=== PATIENT | female | born 1950 | race Caucasian/White ===

== ENCOUNTER 2020-12-17 16:17 | Inpatient (IN) ==
[2020-12-17] MEDS: Budesonide/Formoterol 160/4.5 1 PUFF INH IH SCH (22:44)
[2020-12-17] MEDS: rOPINIRole 0.25 MG TABLET PO SCH (22:52)
[2020-12-18 06:12] LABS: Basophils % 0.2 %; Hematocrit 26.3 % (35.3-44.9); Hemoglobin 8.1 g/dL (11.5-15.4); Immature Granulocytes % 6.6 % (0-4); Lymphocytes # 1.1 K/mcL (0.6-4.6); Lymphocytes % 16.6 %; Mean Corpuscular HGB Conc 30.8 g/dL (31.6-35.5); Mean Corpuscular Hemoglobin 31.2 pg (28.0-33.3); Mean Corpuscular Volume 101.2 fL (83.0-100.0); Mean Platelet Volume 10.4 fL (9.4-12.4); Monocytes # 0.5 K/mcL (0.0-1.3); Monocytes % 8.3 %; Neutrophils # 4.4 K/mcL (1.6-8.9); Nucleated Red Blood Cells 0.9 /100 WBC (0); Red Cell Distribution Width 18.3 % (11.5-14.5); Segmented Neutrophils % 68.3 %; White Blood Count 6.5 K/mcL (4.3-11.1)
[2020-12-18 06:18] LABS: Platelet Count 65 K/mcL (140-400)
[2020-12-18 06:39] LABS: BUN/Creatinine Ratio 32 (6-26); Blood Urea Nitrogen 21 mg/dL (8-23); Calcium 6.9 mg/dL (8.6-10.3); Carbon Dioxide 26 mEq/L (23-29); Chloride 111 mEq/L (98-107); Glucose 192 mg/dL (70-105); Osmolality,Calculated 302 (280-300); Potassium 3.9 mEq/L (3.5-5.1); Sodium 142 mEq/L (136-145); eGFR For African Americans > 60 (> 60); eGFR For Non-African Americans > 60 (> 60)
[2020-12-18] MEDS: *HR* Enoxaparin 40 MG/0.4 ML SYRINGE SQ SCH (06:40)
[2020-12-18] MEDS: Acetaminophen 325 MG TABLET PO PRN ×2 (06:42→11:03)
[2020-12-18] MEDS: dexAMETHasone 4 MG TABLET PO SCH (08:56)
[2020-12-18] MEDS: carvediloL 6.25 MG TABLET PO SCH ×2 (08:56→17:04)
[2020-12-18] MEDS: Isosorbide MONOnitrate (24 HR) 30 MG TAB.ER.24H PO SCH (08:57)
[2020-12-18] MEDS: amLODIPine 5 MG TABLET PO SCH (08:57)
[2020-12-18] MEDS: *HR* SitaGLIPtin 25 MG TABLET PO SCH (08:57)
[2020-12-18] MEDS: levoFLOXacin 750 MG TABLET PO SCH (08:57)
[2020-12-18] MEDS: Loratadine 10 MG TABLET PO SCH (08:57)
[2020-12-18] MEDS: Budesonide/Formoterol 160/4.5 1 PUFF INH IH SCH ×2 (10:03→21:25)
[2020-12-18] MEDS: Tiotropium 10 INH DOSE IH SCH (10:04)
[2020-12-18] MEDS: rOPINIRole 0.25 MG TABLET PO SCH (21:05)
[2020-12-18] MEDS: *HR* OxyCODONE/APAP 5/325 TABLET PO PRN (21:06)
[2020-12-19] MEDS: *HR* OxyCODONE/APAP 5/325 TABLET PO PRN ×2 (05:58→17:22)
[2020-12-19] MEDS: *HR* Enoxaparin 40 MG/0.4 ML SYRINGE SQ SCH (06:01)
[2020-12-19] MEDS: amLODIPine 5 MG TABLET PO SCH (08:18)
[2020-12-19] MEDS: dexAMETHasone 4 MG TABLET PO SCH (08:18)
[2020-12-19] MEDS: Acetaminophen 325 MG TABLET PO PRN (08:18)
[2020-12-19] MEDS: levoFLOXacin 750 MG TABLET PO SCH (08:18)
[2020-12-19] MEDS: carvediloL 6.25 MG TABLET PO SCH ×2 (08:18→17:22)
[2020-12-19] MEDS: Isosorbide MONOnitrate (24 HR) 30 MG TAB.ER.24H PO SCH (08:19)
[2020-12-19] MEDS: Loratadine 10 MG TABLET PO SCH (08:19)
[2020-12-19] MEDS: *HR* SitaGLIPtin 25 MG TABLET PO SCH (08:19)
[2020-12-19] MEDS: Benzonatate 100 MG CAPSULE PO PRN ×2 (08:19→22:10)
[2020-12-19] MEDS ORDERED: Dextrose Gel 15 GM/37.5 ML TUBE PO PRN ×2 (09:48)
[2020-12-19] MEDS ORDERED: *HR* Dextrose 50 % in Water (Vial) 50 ML VIAL IVP PRN (09:48)
[2020-12-19] MEDS ORDERED: D5% in Water 1,000 ML IVC PRN (09:48)
[2020-12-19] MEDS: Tiotropium 10 INH DOSE IH SCH (09:59)
[2020-12-19] MEDS: Budesonide/Formoterol 160/4.5 1 PUFF INH IH SCH ×2 (10:00→20:31)
[2020-12-19] MEDS: Insulin LISPRO 300 UNITS/3 ML VIAL SUBQ SCH ×3 (11:52→22:11)
[2020-12-19] MEDS: Fluconazole 100 MG TABLET PO SCH (17:22)
[2020-12-19] MEDS: Nystatin Cream 15 GM TUBE TP SCH (22:09)
[2020-12-19] MEDS: Nystatin POWDER 30 GM BOTTLE TP SCH (22:09)
[2020-12-19] MEDS: rOPINIRole 0.25 MG TABLET PO SCH (22:09)
[2020-12-19] MEDS: GuaiFENesin/Dextromethorphan TABLET PO PRN (22:10)
[2020-12-20] MEDS: *HR* Enoxaparin 40 MG/0.4 ML SYRINGE SQ SCH (04:13)
[2020-12-20] MEDS: GuaiFENesin/Dextromethorphan TABLET PO PRN (08:55)
[2020-12-20] MEDS: Loratadine 10 MG TABLET PO SCH (08:55)
[2020-12-20] MEDS: Fluconazole 100 MG TABLET PO SCH (08:55)
[2020-12-20] MEDS: carvediloL 6.25 MG TABLET PO SCH ×2 (08:55→17:19)
[2020-12-20] MEDS: *HR* SitaGLIPtin 25 MG TABLET PO SCH (08:56)
[2020-12-20] MEDS: *HR* OxyCODONE/APAP 5/325 TABLET PO PRN ×2 (08:56→22:41)
[2020-12-20] MEDS: amLODIPine 5 MG TABLET PO SCH (08:56)
[2020-12-20] MEDS: dexAMETHasone 4 MG TABLET PO SCH (08:56)
[2020-12-20] MEDS: levoFLOXacin 750 MG TABLET PO SCH (08:56)
[2020-12-20] MEDS: Insulin LISPRO 300 UNITS/3 ML VIAL SUBQ SCH ×4 (08:57→22:42)
[2020-12-20] MEDS: Tiotropium 10 INH DOSE IH SCH (10:29)
[2020-12-20] MEDS: Budesonide/Formoterol 160/4.5 1 PUFF INH IH SCH ×2 (10:30→21:03)
[2020-12-20] MEDS: Isosorbide MONOnitrate (24 HR) 30 MG TAB.ER.24H PO SCH (12:28)
[2020-12-20] MEDS: Nystatin POWDER 30 GM BOTTLE TP SCH ×2 (12:29→22:42)
[2020-12-20] MEDS: Nystatin Cream 15 GM TUBE TP SCH ×2 (12:29→22:37)
[2020-12-20] MEDS: Benzonatate 100 MG CAPSULE PO PRN (22:41)
[2020-12-20] MEDS: rOPINIRole 0.25 MG TABLET PO SCH (22:41)
[2020-12-21] MEDS: *HR* Enoxaparin 40 MG/0.4 ML SYRINGE SQ SCH (05:09)
[2020-12-21 07:33] LABS: Basophils % 0.2 %; Hematocrit 26.5 % (35.3-44.9); Hemoglobin 8.4 g/dL (11.5-15.4); Immature Granulocytes % 6.3 % (0-4); Lymphocytes % 16.3 %; Mean Corpuscular HGB Conc 31.7 g/dL (31.6-35.5); Mean Corpuscular Volume 97.8 fL (83.0-100.0); Mean Platelet Volume 10.3 fL (9.4-12.4); Monocytes # 0.3 K/mcL (0.0-1.3); Monocytes % 5.4 %; Neutrophils # 4.4 K/mcL (1.6-8.9); Red Blood Count 2.71 M/mcL (3.82-4.97); Red Cell Distribution Width 18.2 % (11.5-14.5); Segmented Neutrophils % 71.8 %; White Blood Count 6.2 K/mcL (4.3-11.1)
[2020-12-21 07:36] LABS: Platelet Count 53 K/mcL (140-400)
[2020-12-21 07:42] LABS: BUN/Creatinine Ratio 42 (6-26); Blood Urea Nitrogen 22 mg/dL (8-23); Calcium 7.2 mg/dL (8.6-10.3); Carbon Dioxide 32 mEq/L (23-29); Chloride 99 mEq/L (98-107); Glucose 239 mg/dL (70-105); Osmolality,Calculated 291 (280-300); Potassium 4.9 mEq/L (3.5-5.1); Sodium 135 mEq/L (136-145); eGFR For African Americans > 60 (> 60); eGFR For Non-African Americans > 60 (> 60)
[2020-12-21] MEDS: *HR* SitaGLIPtin 25 MG TABLET PO SCH (09:53)
[2020-12-21] MEDS: carvediloL 6.25 MG TABLET PO SCH ×2 (09:53→16:49)
[2020-12-21] MEDS: levoFLOXacin 750 MG TABLET PO SCH (09:53)
[2020-12-21] MEDS: dexAMETHasone 4 MG TABLET PO SCH (09:53)
[2020-12-21] MEDS: Isosorbide MONOnitrate (24 HR) 30 MG TAB.ER.24H PO SCH (09:53)
[2020-12-21] MEDS: Loratadine 10 MG TABLET PO SCH (09:54)
[2020-12-21] MEDS: Fluconazole 100 MG TABLET PO SCH (09:54)
[2020-12-21] MEDS: amLODIPine 5 MG TABLET PO SCH (09:54)
[2020-12-21] MEDS: *HR* OxyCODONE/APAP 5/325 TABLET PO PRN ×2 (09:54→21:37)
[2020-12-21] MEDS: Insulin LISPRO 300 UNITS/3 ML VIAL SUBQ SCH ×4 (09:56→21:21)
[2020-12-21] MEDS: Nystatin Cream 15 GM TUBE TP SCH ×2 (09:57→21:29)
[2020-12-21] MEDS: Nystatin POWDER 30 GM BOTTLE TP SCH ×2 (09:57→21:29)
[2020-12-21] MEDS: Tiotropium 10 INH DOSE IH SCH (10:14)
[2020-12-21] MEDS: Budesonide/Formoterol 160/4.5 1 PUFF INH IH SCH ×2 (10:15→20:05)
[2020-12-21] MEDS: Furosemide 40 MG TABLET PO SCH (12:41)
[2020-12-21] MEDS: rOPINIRole 0.25 MG TABLET PO SCH (21:21)
[2020-12-22] MEDS: *HR* Enoxaparin 40 MG/0.4 ML SYRINGE SQ SCH (04:04)
[2020-12-22] MEDS: *HR* OxyCODONE/APAP 5/325 TABLET PO PRN ×2 (05:45→16:37)
[2020-12-22] MEDS: carvediloL 6.25 MG TABLET PO SCH ×2 (08:22→16:42)
[2020-12-22] MEDS: dexAMETHasone 4 MG TABLET PO SCH (08:22)
[2020-12-22] MEDS: Loratadine 10 MG TABLET PO SCH (08:22)
[2020-12-22] MEDS: Fluconazole 100 MG TABLET PO SCH (08:22)
[2020-12-22] MEDS: *HR* SitaGLIPtin 25 MG TABLET PO SCH (08:22)
[2020-12-22] MEDS: Furosemide 40 MG TABLET PO SCH (08:22)
[2020-12-22] MEDS: amLODIPine 5 MG TABLET PO SCH (08:22)
[2020-12-22] MEDS: Isosorbide MONOnitrate (24 HR) 30 MG TAB.ER.24H PO SCH (08:23)
[2020-12-22] MEDS: Insulin LISPRO 300 UNITS/3 ML VIAL SUBQ SCH ×4 (08:24→21:40)
[2020-12-22] MEDS: Nystatin Cream 15 GM TUBE TP SCH ×2 (09:57→21:41)
[2020-12-22] MEDS: Nystatin POWDER 30 GM BOTTLE TP SCH ×2 (09:57→21:41)
[2020-12-22] MEDS: Tiotropium 10 INH DOSE IH SCH (11:18)
[2020-12-22] MEDS: Budesonide/Formoterol 160/4.5 1 PUFF INH IH SCH ×2 (11:19→20:06)
[2020-12-22 18:04] LABS: Basophils % 0.3 %; Hematocrit 28.8 % (35.3-44.9); Hemoglobin 9.1 g/dL (11.5-15.4); Immature Granulocytes % 4.9 % (0-4); Lymphocytes # 0.7 K/mcL (0.6-4.6); Lymphocytes % 10.7 %; Mean Corpuscular HGB Conc 31.6 g/dL (31.6-35.5); Mean Corpuscular Hemoglobin 31.4 pg (28.0-33.3); Mean Corpuscular Volume 99.3 fL (83.0-100.0); Mean Platelet Volume 12.4 fL (9.4-12.4); Monocytes # 0.1 K/mcL (0.0-1.3); Monocytes % 1.3 %; Neutrophils # 5.2 K/mcL (1.6-8.9); Nucleated Red Blood Cells 1.1 /100 WBC (0); Red Cell Distribution Width 18.5 % (11.5-14.5); Segmented Neutrophils % 82.8 %; White Blood Count 6.3 K/mcL (4.3-11.1)
[2020-12-22 18:14] LABS: BUN/Creatinine Ratio 40 (6-26); Blood Urea Nitrogen 26 mg/dL (8-23); Calcium 7.2 mg/dL (8.6-10.3); Carbon Dioxide 28 mEq/L (23-29); Chloride 99 mEq/L (98-107); Glucose 282 mg/dL (70-105); Osmolality,Calculated 291 (280-300); Potassium 4.3 mEq/L (3.5-5.1); Sodium 133 mEq/L (136-145); eGFR For African Americans > 60 (> 60); eGFR For Non-African Americans > 60 (> 60)
[2020-12-22 18:16] LABS: Platelet Count 56 K/mcL (140-400)
[2020-12-22 18:20] LABS: Platelet Estimate Marked Decrease (Normal)
[2020-12-22] MEDS: rOPINIRole 0.25 MG TABLET PO SCH (21:41)
[2020-12-22] MEDS: Acetaminophen 325 MG TABLET PO PRN (21:43)
[2020-12-23] MEDS: *HR* OxyCODONE/APAP 5/325 TABLET PO PRN ×2 (05:32→13:29)
[2020-12-23 06:41] LABS: BUN/Creatinine Ratio 44 (6-26); Blood Urea Nitrogen 31 mg/dL (8-23); Calcium 7.1 mg/dL (8.6-10.3); Carbon Dioxide 30 mEq/L (23-29); Chloride 99 mEq/L (98-107); Glucose 292 mg/dL (70-105); Osmolality,Calculated 295 (280-300); Potassium 4.5 mEq/L (3.5-5.1); Sodium 134 mEq/L (136-145); eGFR For African Americans > 60 (> 60); eGFR For Non-African Americans > 60 (> 60)
[2020-12-23 06:47] LABS: Basophils % 0.2 %; Hematocrit 25.7 % (35.3-44.9); Hemoglobin 8.2 g/dL (11.5-15.4); Immature Granulocytes % 5.1 % (0-4); Lymphocytes # 0.9 K/mcL (0.6-4.6); Mean Corpuscular HGB Conc 31.9 g/dL (31.6-35.5); Mean Corpuscular Hemoglobin 31.3 pg (28.0-33.3); Mean Corpuscular Volume 98.1 fL (83.0-100.0); Mean Platelet Volume 10.2 fL (9.4-12.4); Monocytes # 0.4 K/mcL (0.0-1.3); Monocytes % 5.6 %; Nucleated Red Blood Cells 1.1 /100 WBC (0); Red Blood Count 2.62 M/mcL (3.82-4.97); Red Cell Distribution Width 18.3 % (11.5-14.5); Segmented Neutrophils % 75.1 %; White Blood Count 6.6 K/mcL (4.3-11.1)
[2020-12-23 06:49] LABS: Platelet Count 45 K/mcL (140-400)
[2020-12-23] MEDS: *HR* Enoxaparin 40 MG/0.4 ML SYRINGE SQ SCH (07:09)
[2020-12-23 07:13] LABS: Platelet Estimate Decreased (Normal)
[2020-12-23] MEDS: Loratadine 10 MG TABLET PO SCH (08:23)
[2020-12-23] MEDS: Isosorbide MONOnitrate (24 HR) 30 MG TAB.ER.24H PO SCH (08:23)
[2020-12-23] MEDS: Furosemide 40 MG TABLET PO SCH (08:23)
[2020-12-23] MEDS: *HR* SitaGLIPtin 25 MG TABLET PO SCH (08:23)
[2020-12-23] MEDS: carvediloL 6.25 MG TABLET PO SCH ×2 (08:23→17:03)
[2020-12-23] MEDS: amLODIPine 5 MG TABLET PO SCH (08:23)
[2020-12-23] MEDS: Nystatin Cream 15 GM TUBE TP SCH ×2 (08:24→20:38)
[2020-12-23] MEDS: Insulin LISPRO 300 UNITS/3 ML VIAL SUBQ SCH ×4 (08:24→20:38)
[2020-12-23] MEDS: Nystatin POWDER 30 GM BOTTLE TP SCH ×2 (08:24→20:38)
[2020-12-23] MEDS: Budesonide/Formoterol 160/4.5 1 PUFF INH IH SCH ×2 (12:07→20:07)
[2020-12-23] MEDS: Tiotropium 10 INH DOSE IH SCH (12:07)
[2020-12-23] MEDS: rOPINIRole 0.25 MG TABLET PO SCH (20:38)
[2020-12-23] MEDS: Acetaminophen 325 MG TABLET PO PRN (20:47)
[2020-12-23] MEDS: GuaiFENesin/Dextromethorphan TABLET PO PRN (20:47)
[2020-12-24] MEDS: *HR* OxyCODONE/APAP 5/325 TABLET PO PRN ×2 (00:12→08:14)
[2020-12-24 04:49] LABS: Basophils % 0.1 %; Eosinophils % 0.2 %; Hematocrit 26.4 % (35.3-44.9); Hemoglobin 8.3 g/dL (11.5-15.4); Immature Granulocytes % 3.9 % (0-4); Lymphocytes % 22.6 %; Mean Corpuscular HGB Conc 31.4 g/dL (31.6-35.5); Mean Corpuscular Hemoglobin 31.3 pg (28.0-33.3); Mean Corpuscular Volume 99.6 fL (83.0-100.0); Monocytes # 0.7 K/mcL (0.0-1.3); Monocytes % 8.2 %; Neutrophils # 5.7 K/mcL (1.6-8.9); Nucleated Red Blood Cells 0.9 /100 WBC (0); Red Blood Count 2.65 M/mcL (3.82-4.97); Red Cell Distribution Width 19.2 % (11.5-14.5); White Blood Count 8.8 K/mcL (4.3-11.1)
[2020-12-24 04:54] LABS: Platelet Count 48 K/mcL (140-400)
[2020-12-24 04:55] LABS: Platelet Estimate Decreased (Normal)
[2020-12-24 05:02] LABS: BUN/Creatinine Ratio 42 (6-26); Blood Urea Nitrogen 32 mg/dL (8-23); Calcium 7.1 mg/dL (8.6-10.3); Carbon Dioxide 32 mEq/L (23-29); Chloride 103 mEq/L (98-107); Glucose 94 mg/dL (70-105); Osmolality,Calculated 293 (280-300); Potassium 4.6 mEq/L (3.5-5.1); Sodium 138 mEq/L (136-145); eGFR For African Americans > 60 (> 60); eGFR For Non-African Americans > 60 (> 60)
[2020-12-24] MEDS: *HR* Enoxaparin 40 MG/0.4 ML SYRINGE SQ SCH (05:59)
[2020-12-24] MEDS: Insulin LISPRO 300 UNITS/3 ML VIAL SUBQ SCH ×4 (07:37→21:40)
[2020-12-24] MEDS: Isosorbide MONOnitrate (24 HR) 30 MG TAB.ER.24H PO SCH (08:13)
[2020-12-24] MEDS: Loratadine 10 MG TABLET PO SCH (08:13)
[2020-12-24] MEDS: Furosemide 40 MG TABLET PO SCH (08:13)
[2020-12-24] MEDS: *HR* SitaGLIPtin 25 MG TABLET PO SCH (08:13)
[2020-12-24] MEDS: amLODIPine 5 MG TABLET PO SCH (08:14)
[2020-12-24] MEDS: carvediloL 6.25 MG TABLET PO SCH ×2 (08:14→17:09)
[2020-12-24] MEDS: Nystatin POWDER 30 GM BOTTLE TP SCH ×2 (08:14→21:42)
[2020-12-24] MEDS: Nystatin Cream 15 GM TUBE TP SCH ×2 (08:14→21:42)
[2020-12-24] MEDS: Budesonide/Formoterol 160/4.5 1 PUFF INH IH SCH ×2 (09:35→20:16)
[2020-12-24] MEDS: Tiotropium 10 INH DOSE IH SCH (09:36)
[2020-12-24] MEDS: Acetaminophen 325 MG TABLET PO PRN (17:12)
[2020-12-24] MEDS: rOPINIRole 0.25 MG TABLET PO SCH (21:40)
[2020-12-24] MEDS: GuaiFENesin/Dextromethorphan TABLET PO PRN (21:47)
[2020-12-25] MEDS: *HR* OxyCODONE/APAP 5/325 TABLET PO PRN ×3 (01:21→21:07)
[2020-12-25] MEDS: *HR* Enoxaparin 40 MG/0.4 ML SYRINGE SQ SCH (05:22)
[2020-12-25] MEDS: Insulin LISPRO 300 UNITS/3 ML VIAL SUBQ SCH ×4 (08:46→21:01)
[2020-12-25] MEDS: Isosorbide MONOnitrate (24 HR) 30 MG TAB.ER.24H PO SCH (08:57)
[2020-12-25] MEDS: Loratadine 10 MG TABLET PO SCH (08:57)
[2020-12-25] MEDS: carvediloL 6.25 MG TABLET PO SCH ×2 (08:57→17:38)
[2020-12-25] MEDS: amLODIPine 5 MG TABLET PO SCH (08:57)
[2020-12-25] MEDS: Furosemide 40 MG TABLET PO SCH (08:57)
[2020-12-25] MEDS: Nystatin Cream 15 GM TUBE TP SCH ×2 (08:59→21:01)
[2020-12-25] MEDS: Nystatin POWDER 30 GM BOTTLE TP SCH ×2 (08:59→21:01)
[2020-12-25] MEDS: *HR* SitaGLIPtin 25 MG TABLET PO SCH (08:59)
[2020-12-25] MEDS: Budesonide/Formoterol 160/4.5 1 PUFF INH IH SCH ×2 (09:21→19:45)
[2020-12-25] MEDS: Tiotropium 10 INH DOSE IH SCH (09:22)
[2020-12-25] MEDS: rOPINIRole 0.25 MG TABLET PO SCH (21:01)
[2020-12-26] MEDS: *HR* Enoxaparin 40 MG/0.4 ML SYRINGE SQ SCH ×2 (04:22→04:47)
[2020-12-26 05:57] LABS: Hematocrit 24.9 % (35.3-44.9); Hemoglobin 7.5 g/dL (11.5-15.4); Mean Corpuscular HGB Conc 30.1 g/dL (31.6-35.5); Mean Corpuscular Hemoglobin 30.9 pg (28.0-33.3); Mean Corpuscular Volume 102.5 fL (83.0-100.0); Mean Platelet Volume 8.7 fL (9.4-12.4); Red Blood Count 2.43 M/mcL (3.82-4.97); Red Cell Distribution Width 19.5 % (11.5-14.5); White Blood Count 5.7 K/mcL (4.3-11.1)
[2020-12-26 05:59] LABS: Platelet Count 29 K/mcL (140-400)
[2020-12-26] MEDS: *HR* OxyCODONE/APAP 5/325 TABLET PO PRN ×3 (06:59→18:18)
[2020-12-26] MEDS: Insulin LISPRO 300 UNITS/3 ML VIAL SUBQ SCH ×4 (08:27→19:59)
[2020-12-26] MEDS: Furosemide 40 MG TABLET PO SCH (08:48)
[2020-12-26] MEDS: carvediloL 6.25 MG TABLET PO SCH ×2 (08:48→18:09)
[2020-12-26] MEDS: *HR* SitaGLIPtin 25 MG TABLET PO SCH (08:49)
[2020-12-26] MEDS: Isosorbide MONOnitrate (24 HR) 30 MG TAB.ER.24H PO SCH (08:49)
[2020-12-26] MEDS: amLODIPine 5 MG TABLET PO SCH (08:49)
[2020-12-26] MEDS: Loratadine 10 MG TABLET PO SCH (08:49)
[2020-12-26] MEDS: Tiotropium 10 INH DOSE IH SCH (09:53)
[2020-12-26] MEDS: Budesonide/Formoterol 160/4.5 1 PUFF INH IH SCH ×2 (09:55→20:05)
[2020-12-26] MEDS ORDERED: 0.9 % Sodium Chloride 250 ML IVC SCH (11:30)
[2020-12-26] MEDS: Nystatin POWDER 30 GM BOTTLE TP SCH ×2 (11:32→19:49)
[2020-12-26] MEDS: Nystatin Cream 15 GM TUBE TP SCH ×2 (11:33→19:50)
[2020-12-26] MEDS: rOPINIRole 0.25 MG TABLET PO SCH (19:49)
[2020-12-27] MEDS: *HR* OxyCODONE/APAP 5/325 TABLET PO PRN (06:00)
[2020-12-27 06:07] LABS: Eosinophils # 0.1 K/mcL (0.0-0.6); Hematocrit 23.3 % (35.3-44.9); Hemoglobin 7.2 g/dL (11.5-15.4); Immature Granulocytes % 1.3 % (0-4); Lymphocytes # 0.6 K/mcL (0.6-4.6); Lymphocytes % 9.6 %; Mean Corpuscular HGB Conc 30.9 g/dL (31.6-35.5); Mean Corpuscular Hemoglobin 31.4 pg (28.0-33.3); Mean Corpuscular Volume 101.7 fL (83.0-100.0); Mean Platelet Volume 11.1 fL (9.4-12.4); Monocytes # 0.3 K/mcL (0.0-1.3); Monocytes % 4.7 %; Neutrophils # 5.1 K/mcL (1.6-8.9); Red Blood Count 2.29 M/mcL (3.82-4.97); Red Cell Distribution Width 19.8 % (11.5-14.5); Segmented Neutrophils % 83.4 %; White Blood Count 6.2 K/mcL (4.3-11.1)
[2020-12-27 06:12] LABS: Platelet Count 33 K/mcL (140-400)
[2020-12-27 06:27] LABS: Alanine Aminotransferase 12 Units/L (7-52); Albumin 2.4 g/dL (3.5-5.7); Albumin/Globulin Ratio 1.1 (1.1-2.2); Alkaline Phosphatase 74 Units/L (34-104); Aspartate Amino Transferase 13 Units/L (13-39); BUN/Creatinine Ratio 45 (6-26); Bilirubin,Total 0.5 mg/dL (0.3-1.0); Blood Urea Nitrogen 25 mg/dL (8-23); Calcium 7.6 mg/dL (8.6-10.3); Carbon Dioxide 36 mEq/L (23-29); Chloride 101 mEq/L (98-107); Globulin 2.2 g/dL (2.4-3.5); Glucose 166 mg/dL (70-105); Magnesium 1.4 mg/dL (1.6-2.6); Osmolality,Calculated 296 (280-300); Potassium 4.3 mEq/L (3.5-5.1); Sodium 139 mEq/L (136-145); Total Protein 4.6 g/dL (6.4-8.9); eGFR For African Americans > 60 (> 60); eGFR For Non-African Americans > 60 (> 60)
[2020-12-27] MEDS ORDERED: Furosemide 20 MG/2 ML VIAL IVP ONE (06:30)
[2020-12-27 07:03] LABS: Platelet Estimate Decreased (Normal)
[2020-12-27 07:04] LABS: Anisocytosis 1+ (Not Present); Hypochromasia Present (Not Present); Poikilocytosis 1+ (Not Present)
[2020-12-27] MEDS: Isosorbide MONOnitrate (24 HR) 30 MG TAB.ER.24H PO SCH (07:54)
[2020-12-27] MEDS: *HR* SitaGLIPtin 25 MG TABLET PO SCH (07:54)
[2020-12-27] MEDS: carvediloL 6.25 MG TABLET PO SCH ×2 (07:55→16:33)
[2020-12-27] MEDS: Furosemide 40 MG TABLET PO SCH ×3 (07:55→20:34)
[2020-12-27] MEDS: Loratadine 10 MG TABLET PO SCH (07:55)
[2020-12-27] MEDS: amLODIPine 5 MG TABLET PO SCH (07:55)
[2020-12-27] MEDS: Insulin LISPRO 300 UNITS/3 ML VIAL SUBQ SCH ×4 (07:57→20:24)
[2020-12-27] MEDS: Nystatin Cream 15 GM TUBE TP SCH ×2 (07:58→20:36)
[2020-12-27] MEDS: Nystatin POWDER 30 GM BOTTLE TP SCH ×2 (07:59→20:35)
[2020-12-27] MEDS: Tiotropium 10 INH DOSE IH SCH (10:13)
[2020-12-27] MEDS: Budesonide/Formoterol 160/4.5 1 PUFF INH IH SCH ×2 (10:14→20:05)
[2020-12-27 12:15] LABS: % Iron Saturation 15 % (15-50); Iron 30 mcg/dL (50-170); Transferrin 139 mg/dL (203-362)
[2020-12-27 12:32] LABS: Ferritin 180 ng/mL (10-120)
[2020-12-27 12:37] LABS: Folate 3.5 ng/mL (3.0-16.0)
[2020-12-27 19:41] LABS: C-Reactive Protein 177 mg/L (Less than 10)
[2020-12-27] MEDS: Ascorbic Acid 500 MG TABLET PO SCH (20:35)
[2020-12-27] MEDS: rOPINIRole 0.25 MG TABLET PO SCH (20:35)
[2020-12-28] MEDS: *HR* OxyCODONE/APAP 5/325 TABLET PO PRN ×2 (03:49→21:03)
[2020-12-28 06:48] LABS: Hematocrit 23.5 % (35.3-44.9); Hemoglobin 7.2 g/dL (11.5-15.4); Mean Corpuscular HGB Conc 30.6 g/dL (31.6-35.5); Mean Corpuscular Hemoglobin 31.2 pg (28.0-33.3); Mean Corpuscular Volume 101.7 fL (83.0-100.0); Mean Platelet Volume 11.3 fL (9.4-12.4); Red Blood Count 2.31 M/mcL (3.82-4.97); Red Cell Distribution Width 19.4 % (11.5-14.5); White Blood Count 4.6 K/mcL (4.3-11.1)
[2020-12-28 06:51] LABS: Platelet Count 40 K/mcL (140-400)
[2020-12-28] MEDS: levoFLOXacin 500 MG TABLET PO SCH (09:21)
[2020-12-28] MEDS: Loratadine 10 MG TABLET PO SCH (09:22)
[2020-12-28] MEDS: Ascorbic Acid 500 MG TABLET PO SCH ×2 (09:22→20:55)
[2020-12-28] MEDS: Isosorbide MONOnitrate (24 HR) 30 MG TAB.ER.24H PO SCH (09:22)
[2020-12-28] MEDS: Furosemide 40 MG TABLET PO SCH ×2 (09:23→20:55)
[2020-12-28] MEDS: Cyanocobalamin (B-12) 1,000 MCG TABLET PO SCH (09:23)
[2020-12-28] MEDS: carvediloL 6.25 MG TABLET PO SCH ×2 (09:23→16:26)
[2020-12-28] MEDS: amLODIPine 5 MG TABLET PO SCH (09:23)
[2020-12-28] MEDS: *HR* SitaGLIPtin 25 MG TABLET PO SCH (09:24)
[2020-12-28] MEDS: Insulin LISPRO 300 UNITS/3 ML VIAL SUBQ SCH ×4 (09:25→20:23)
[2020-12-28] MEDS: Nystatin POWDER 30 GM BOTTLE TP SCH ×2 (09:26→20:55)
[2020-12-28] MEDS: Nystatin Cream 15 GM TUBE TP SCH ×2 (09:27→20:55)
[2020-12-28] MEDS: Tiotropium 10 INH DOSE IH SCH (10:45)
[2020-12-28] MEDS: Budesonide/Formoterol 160/4.5 1 PUFF INH IH SCH ×2 (10:46→19:56)
[2020-12-28 11:54] LABS: Alanine Aminotransferase 10 Units/L (7-52); Albumin 2.5 g/dL (3.5-5.7); Albumin/Globulin Ratio 1.1 (1.1-2.2); Alkaline Phosphatase 82 Units/L (34-104); Aspartate Amino Transferase 9 Units/L (13-39); BUN/Creatinine Ratio 43 (6-26); Bilirubin,Total 0.4 mg/dL (0.3-1.0); Blood Urea Nitrogen 22 mg/dL (8-23); Calcium 7.9 mg/dL (8.6-10.3); Carbon Dioxide 38 mEq/L (23-29); Chloride 98 mEq/L (98-107); Globulin 2.3 g/dL (2.4-3.5); Glucose 149 mg/dL (70-105); Magnesium 1.6 mg/dL (1.6-2.6); Osmolality,Calculated 296 (280-300); Potassium 3.7 mEq/L (3.5-5.1); Sodium 140 mEq/L (136-145); Total Protein 4.8 g/dL (6.4-8.9); eGFR For African Americans > 60 (> 60); eGFR For Non-African Americans > 60 (> 60)
[2020-12-28] MEDS: GuaiFENesin/Dextromethorphan TABLET PO PRN (16:26)
[2020-12-28] MEDS: rOPINIRole 0.25 MG TABLET PO SCH (20:55)
[2020-12-29 05:46] LABS: Hematocrit 24.4 % (35.3-44.9); Hemoglobin 7.5 g/dL (11.5-15.4); Mean Corpuscular HGB Conc 30.7 g/dL (31.6-35.5); Mean Corpuscular Hemoglobin 31.5 pg (28.0-33.3); Mean Corpuscular Volume 102.5 fL (83.0-100.0); Mean Platelet Volume 10.3 fL (9.4-12.4); Red Blood Count 2.38 M/mcL (3.82-4.97); White Blood Count 3.9 K/mcL (4.3-11.1)
[2020-12-29 06:00] LABS: Platelet Count 42 K/mcL (140-400)
[2020-12-29] MEDS: amLODIPine 5 MG TABLET PO SCH (07:49)
[2020-12-29] MEDS: carvediloL 6.25 MG TABLET PO SCH ×2 (07:49→17:24)
[2020-12-29] MEDS: Ascorbic Acid 500 MG TABLET PO SCH ×2 (07:49→20:15)
[2020-12-29] MEDS: Isosorbide MONOnitrate (24 HR) 30 MG TAB.ER.24H PO SCH (07:49)
[2020-12-29] MEDS: levoFLOXacin 500 MG TABLET PO SCH (07:49)
[2020-12-29] MEDS: GuaiFENesin/Dextromethorphan TABLET PO PRN (07:49)
[2020-12-29] MEDS: *HR* SitaGLIPtin 25 MG TABLET PO SCH (07:49)
[2020-12-29] MEDS: Loratadine 10 MG TABLET PO SCH (07:50)
[2020-12-29] MEDS: *HR* OxyCODONE/APAP 5/325 TABLET PO PRN ×3 (07:50→20:15)
[2020-12-29] MEDS: Cyanocobalamin (B-12) 1,000 MCG TABLET PO SCH (07:50)
[2020-12-29] MEDS: Nystatin Cream 15 GM TUBE TP SCH ×2 (07:51→20:16)
[2020-12-29] MEDS: Furosemide 40 MG TABLET PO SCH ×2 (07:51→20:16)
[2020-12-29] MEDS: Insulin LISPRO 300 UNITS/3 ML VIAL SUBQ SCH ×4 (07:51→20:03)
[2020-12-29] MEDS: Nystatin POWDER 30 GM BOTTLE TP SCH ×2 (07:52→20:17)
[2020-12-29] MEDS: Budesonide/Formoterol 160/4.5 1 PUFF INH IH SCH ×2 (07:57→21:27)
[2020-12-29] MEDS: Tiotropium 10 INH DOSE IH SCH (07:57)
[2020-12-29] MEDS: Ipratropium/Albuterol Neb 3 ML IH SCH ×3 (13:48→21:27)
[2020-12-29] MEDS: GuaiFENesin/Dextromethorphan TABLET PO SCH ×2 (14:02→20:16)
[2020-12-29] MEDS: rOPINIRole 0.25 MG TABLET PO SCH (20:15)
[2020-12-30] MEDS: Ipratropium/Albuterol Neb 3 ML IH SCH ×4 (03:50→20:46)
[2020-12-30] MEDS: levoFLOXacin 750 MG TABLET PO SCH (07:16)
[2020-12-30] MEDS: *HR* SitaGLIPtin 25 MG TABLET PO SCH (07:16)
[2020-12-30] MEDS: GuaiFENesin/Dextromethorphan TABLET PO SCH ×3 (07:16→20:31)
[2020-12-30] MEDS: Loratadine 10 MG TABLET PO SCH (07:16)
[2020-12-30] MEDS: Furosemide 40 MG TABLET PO SCH ×2 (07:16→20:32)
[2020-12-30] MEDS: Cyanocobalamin (B-12) 1,000 MCG TABLET PO SCH (07:16)
[2020-12-30] MEDS: *HR* OxyCODONE/APAP 5/325 TABLET PO PRN ×2 (07:17→13:55)
[2020-12-30] MEDS: Nystatin POWDER 30 GM BOTTLE TP SCH ×2 (07:17→20:32)
[2020-12-30] MEDS: carvediloL 6.25 MG TABLET PO SCH ×2 (07:17→13:55)
[2020-12-30] MEDS: Ascorbic Acid 500 MG TABLET PO SCH ×2 (07:17→20:32)
[2020-12-30] MEDS: amLODIPine 5 MG TABLET PO SCH (07:17)
[2020-12-30] MEDS: Insulin LISPRO 300 UNITS/3 ML VIAL SUBQ SCH ×4 (07:18→20:33)
[2020-12-30] MEDS: Isosorbide MONOnitrate (24 HR) 30 MG TAB.ER.24H PO SCH (07:18)
[2020-12-30] MEDS: Nystatin Cream 15 GM TUBE TP SCH ×2 (07:18→20:32)
[2020-12-30] MEDS: Tiotropium 10 INH DOSE IH SCH (10:38)
[2020-12-30] MEDS: Budesonide/Formoterol 160/4.5 1 PUFF INH IH SCH ×2 (10:39→20:46)
[2020-12-30] MEDS ORDERED: Lactulose Oral Soln 20 GM/30 ML UDC PO ONE (12:56)
[2020-12-30] MEDS ORDERED: Bisacodyl 10 MG RECTAL SUPPOSITORY RC PRN (12:56)
[2020-12-30] MEDS: Acetaminophen 325 MG TABLET PO PRN (20:31)
[2020-12-30] MEDS: rOPINIRole 0.25 MG TABLET PO SCH (20:31)
[2020-12-30] MEDS: Sennosides 8.6 MG TABLET PO SCH (20:31)
[2020-12-31] MEDS: Acetaminophen 325 MG TABLET PO PRN ×2 (02:05→18:36)
[2020-12-31] MEDS: Ipratropium/Albuterol Neb 3 ML IH SCH ×4 (03:35→21:19)
[2020-12-31 04:45] LABS: Hemoglobin 6.5 g/dL (11.5-15.4); Mean Corpuscular Hemoglobin 31.1 pg (28.0-33.3); Mean Corpuscular Volume 100.5 fL (83.0-100.0); Mean Platelet Volume 10.5 fL (9.4-12.4); Red Blood Count 2.09 M/mcL (3.82-4.97); Red Cell Distribution Width 18.4 % (11.5-14.5); White Blood Count 4.6 K/mcL (4.3-11.1)
[2020-12-31 05:32] LABS: Platelet Count 47 K/mcL (140-400)
[2020-12-31] MEDS ORDERED: Furosemide 20 MG/2 ML VIAL IVP ONE (06:50)
[2020-12-31] MEDS: amLODIPine 5 MG TABLET PO SCH (07:54)
[2020-12-31] MEDS: GuaiFENesin/Dextromethorphan TABLET PO SCH ×3 (07:54→20:34)
[2020-12-31] MEDS: *HR* SitaGLIPtin 25 MG TABLET PO SCH (07:54)
[2020-12-31] MEDS: Sennosides 8.6 MG TABLET PO SCH ×2 (07:54→20:33)
[2020-12-31] MEDS: carvediloL 6.25 MG TABLET PO SCH ×2 (07:55→16:02)
[2020-12-31] MEDS: Ascorbic Acid 500 MG TABLET PO SCH ×2 (07:55→20:34)
[2020-12-31] MEDS: Cyanocobalamin (B-12) 1,000 MCG TABLET PO SCH (07:55)
[2020-12-31] MEDS: Furosemide 40 MG TABLET PO SCH ×2 (07:55→19:40)
[2020-12-31] MEDS: Isosorbide MONOnitrate (24 HR) 30 MG TAB.ER.24H PO SCH (07:55)
[2020-12-31] MEDS: levoFLOXacin 750 MG TABLET PO SCH (07:55)
[2020-12-31] MEDS: Loratadine 10 MG TABLET PO SCH (07:55)
[2020-12-31] MEDS: polyethylene glycoL 3350 17 GM POWD.PACK PO SCH (07:55)
[2020-12-31] MEDS: *HR* OxyCODONE/APAP 5/325 TABLET PO PRN ×3 (08:10→20:34)
[2020-12-31] MEDS: Insulin LISPRO 300 UNITS/3 ML VIAL SUBQ SCH ×4 (08:13→19:35)
[2020-12-31 08:18] LABS: BUN/Creatinine Ratio 32 (6-26); Blood Urea Nitrogen 26 mg/dL (8-23); Carbon Dioxide 34 mEq/L (23-29); Chloride 98 mEq/L (98-107); Glucose 114 mg/dL (70-105); Magnesium 1.4 mg/dL (1.6-2.6); Osmolality,Calculated 292 (280-300); Potassium 3.4 mEq/L (3.5-5.1); Sodium 138 mEq/L (136-145); eGFR For African Americans > 60 (> 60); eGFR For Non-African Americans > 60 (> 60)
[2020-12-31] MEDS: Budesonide/Formoterol 160/4.5 1 PUFF INH IH SCH ×2 (10:17→21:16)
[2020-12-31] MEDS: Nystatin POWDER 30 GM BOTTLE TP SCH ×2 (10:19→20:35)
[2020-12-31] MEDS: Nystatin Cream 15 GM TUBE TP SCH ×2 (10:19→20:35)
[2020-12-31] MEDS: Tiotropium 10 INH DOSE IH SCH (10:19)
[2020-12-31] MEDS: Benzonatate 100 MG CAPSULE PO PRN (16:02)
[2020-12-31] MEDS ORDERED: 0.9 % Sodium Chloride 250 ML ONE ×2 (17:41→23:20)
[2020-12-31] MEDS: rOPINIRole 0.25 MG TABLET PO SCH (20:34)
[2020-12-31] MEDS: Magnesium Oxide 400 MG TABLET PO SCH (20:34)
[2020-12-31 21:11] LABS: Adenovirus Not Detected (Not Detect); Bordetella Pertussis Not Detected (Not Detect); Chlamydophila pneumoniae Not Detected (Not Detect); Coronavirus 229E Not Detected (Not Detect); Coronavirus HKU1 Not Detected (Not Detect); Coronavirus NL63 Not Detected (Not Detect); Coronavirus OC43 Not Detected (Not Detect); Human Metapneumovirus Not Detected (Not Detect); Human Rhinovirus/Enterovirus Not Detected (Not Detect); Influenza A Subtype 2009 H1 Not Detected (Not Detect); Influenza B Not Detected (Not Detect); Mycoplasma pneumoniae Not Detected (Not Detect); Parainfluenza Virus 1 Not Detected (Not Detect); Parainfluenza Virus 2 Not Detected (Not Detect); Parainfluenza Virus 3 Not Detected (Not Detect); Parainfluenza Virus 4 Not Detected (Not Detect); Respiratory Syncytial Virus Not Detected (Not Detect); SARS-CoV-2 Not Detected (Not Detect)
[2020-12-31 21:51] LABS: Bilirubin,Urine Negative (Negative); Blood,Urine Trace-intact (Negative); Clarity,Urine Slightly Cloudy (Clear); Glucose,Urine (UA) Normal (Normal); Ketones,Urine Negative (Negative); Leukocyte Esterase,Urine Negative (Negative); Nitrite,Urine Negative (Negative); Protein,Urine 100 mg/dL (Neg-Trace); Urobilinogen,Urine Normal (Normal)
[2020-12-31 21:53] LABS: Color,Urine Yellow (Yellow)
[2020-12-31 21:54] LABS: Amorphous Sediment,Urine Few per hpf (None-Few); RBC,Urine 0-3 per hpf (0-3)
[2021-01-01] MEDS: Ipratropium/Albuterol Neb 3 ML IH SCH ×4 (04:10→21:39)
[2021-01-01 04:51] LABS: Basophils % 0.2 %; Eosinophils # 0.1 K/mcL (0.0-0.6); Eosinophils % 1.7 %; Hematocrit 31.2 % (35.3-44.9); Immature Granulocytes % 1.9 % (0-4); Mean Corpuscular HGB Conc 31.7 g/dL (31.6-35.5); Mean Corpuscular Hemoglobin 29.4 pg (28.0-33.3); Mean Platelet Volume 10.8 fL (9.4-12.4); Monocytes # 0.4 K/mcL (0.0-1.3); Monocytes % 8.3 %; Neutrophils # 3.6 K/mcL (1.6-8.9); Red Blood Count 3.37 M/mcL (3.82-4.97); Red Cell Distribution Width 22.5 % (11.5-14.5); Segmented Neutrophils % 68.9 %; White Blood Count 5.2 K/mcL (4.3-11.1)
[2021-01-01 04:56] LABS: Platelet Count 50 K/mcL (140-400)
[2021-01-01 05:00] LABS: Mean Corpuscular Volume 92.6 fL (83.0-100.0)
[2021-01-01 05:01] LABS: Hemoglobin 9.9 g/dL (11.5-15.4)
[2021-01-01 05:02] LABS: Anisocytosis 1+ (Not Present); Platelet Estimate Decreased (Normal); Poikilocytosis 1+ (Not Present)
[2021-01-01 05:12] LABS: BUN/Creatinine Ratio 32 (6-26); Blood Urea Nitrogen 25 mg/dL (8-23); Carbon Dioxide 32 mEq/L (23-29); Chloride 101 mEq/L (98-107); Glucose 158 mg/dL (70-105); Osmolality,Calculated 294 (280-300); Potassium 4.3 mEq/L (3.5-5.1); Sodium 138 mEq/L (136-145); eGFR For African Americans > 60 (> 60); eGFR For Non-African Americans > 60 (> 60)
[2021-01-01] MEDS: Benzonatate 100 MG CAPSULE PO PRN (05:15)
[2021-01-01] MEDS: *HR* OxyCODONE/APAP 5/325 TABLET PO PRN ×4 (05:15→20:28)
[2021-01-01] MEDS: Sennosides 8.6 MG TABLET PO SCH ×2 (07:58→20:27)
[2021-01-01] MEDS: Magnesium Oxide 400 MG TABLET PO SCH ×2 (07:59→20:27)
[2021-01-01] MEDS: GuaiFENesin/Dextromethorphan TABLET PO SCH ×3 (07:59→20:27)
[2021-01-01] MEDS: Furosemide 40 MG TABLET PO SCH (07:59)
[2021-01-01] MEDS: Ascorbic Acid 500 MG TABLET PO SCH ×2 (08:00→20:28)
[2021-01-01] MEDS: Loratadine 10 MG TABLET PO SCH (08:00)
[2021-01-01] MEDS: Cyanocobalamin (B-12) 1,000 MCG TABLET PO SCH (08:00)
[2021-01-01] MEDS: carvediloL 6.25 MG TABLET PO SCH ×2 (08:00→15:14)
[2021-01-01] MEDS: Isosorbide MONOnitrate (24 HR) 30 MG TAB.ER.24H PO SCH (08:00)
[2021-01-01] MEDS: *HR* SitaGLIPtin 25 MG TABLET PO SCH (08:01)
[2021-01-01] MEDS: Insulin LISPRO 300 UNITS/3 ML VIAL SUBQ SCH ×4 (08:01→20:26)
[2021-01-01] MEDS: amLODIPine 5 MG TABLET PO SCH (08:01)
[2021-01-01] MEDS: polyethylene glycoL 3350 17 GM POWD.PACK PO SCH (08:01)
[2021-01-01] MEDS: Nystatin Cream 15 GM TUBE TP SCH ×2 (08:02→20:27)
[2021-01-01] MEDS: Nystatin POWDER 30 GM BOTTLE TP SCH ×2 (08:02→20:27)
[2021-01-01] MEDS: Tiotropium 10 INH DOSE IH SCH (10:20)
[2021-01-01] MEDS: Budesonide/Formoterol 160/4.5 1 PUFF INH IH SCH ×2 (10:22→21:39)
[2021-01-01] MEDS ORDERED: Isovue-370 500 ML BOTTLE IVP ONE (13:01)
[2021-01-01] MEDS: rOPINIRole 0.25 MG TABLET PO SCH (20:27)
[2021-01-01 21:29] LABS: Hematocrit 30.5 % (35.3-44.9); Hemoglobin 9.5 g/dL (11.5-15.4)
[2021-01-02] MEDS: Ipratropium/Albuterol Neb 3 ML IH SCH ×2 (01:41→08:44)
[2021-01-02] MEDS: *HR* OxyCODONE/APAP 5/325 TABLET PO PRN ×3 (02:47→14:36)
[2021-01-02 06:04] LABS: Basophils % 0.2 %; Eosinophils # 0.1 K/mcL (0.0-0.6); Hematocrit 30.4 % (35.3-44.9); Hemoglobin 9.4 g/dL (11.5-15.4); Immature Granulocytes % 0.4 % (0-4); Lymphocytes # 1.2 K/mcL (0.6-4.6); Mean Corpuscular HGB Conc 30.9 g/dL (31.6-35.5); Mean Corpuscular Hemoglobin 28.9 pg (28.0-33.3); Mean Corpuscular Volume 93.5 fL (83.0-100.0); Mean Platelet Volume 10.1 fL (9.4-12.4); Monocytes # 0.5 K/mcL (0.0-1.3); Neutrophils # 3.2 K/mcL (1.6-8.9); Red Blood Count 3.25 M/mcL (3.82-4.97); Segmented Neutrophils % 64.4 %
[2021-01-02 06:31] LABS: Platelet Count 43 K/mcL (140-400)
[2021-01-02 06:39] LABS: BUN/Creatinine Ratio 36 (6-26); Blood Urea Nitrogen 21 mg/dL (8-23); Calcium 8.4 mg/dL (8.6-10.3); Carbon Dioxide 31 mEq/L (23-29); Chloride 101 mEq/L (98-107); Glucose 120 mg/dL (70-105); Osmolality,Calculated 288 (280-300); Potassium 4.3 mEq/L (3.5-5.1); Sodium 137 mEq/L (136-145); eGFR For African Americans > 60 (> 60); eGFR For Non-African Americans > 60 (> 60)
[2021-01-02] MEDS: Budesonide/Formoterol 160/4.5 1 PUFF INH IH SCH (08:44)
[2021-01-02] MEDS: Tiotropium 10 INH DOSE IH SCH (08:44)
[2021-01-02] MEDS ORDERED: Furosemide 40 MG TABLET PO SCH (09:00)
[2021-01-02] MEDS ORDERED: levoFLOXacin 750 MG TABLET PO SCH (09:00)
[2021-01-02] MEDS: Insulin LISPRO 300 UNITS/3 ML VIAL SUBQ SCH ×2 (09:19→13:18)
[2021-01-02] MEDS: Isosorbide MONOnitrate (24 HR) 30 MG TAB.ER.24H PO SCH (09:20)
[2021-01-02] MEDS: *HR* SitaGLIPtin 25 MG TABLET PO SCH (09:20)
[2021-01-02] MEDS: carvediloL 6.25 MG TABLET PO SCH (09:21)
[2021-01-02] MEDS: Loratadine 10 MG TABLET PO SCH (09:22)
[2021-01-02] MEDS: Cyanocobalamin (B-12) 1,000 MCG TABLET PO SCH (09:22)
[2021-01-02] MEDS: Ascorbic Acid 500 MG TABLET PO SCH (09:23)
[2021-01-02] MEDS: GuaiFENesin/Dextromethorphan TABLET PO SCH ×2 (09:23→14:36)
[2021-01-02] MEDS: Nystatin Cream 15 GM TUBE TP SCH (09:23)
[2021-01-02] MEDS: Nystatin POWDER 30 GM BOTTLE TP SCH (09:23)
[2021-01-02] MEDS: Magnesium Oxide 400 MG TABLET PO SCH (09:23)
[2021-01-02] MEDS: Sennosides 8.6 MG TABLET PO SCH (09:23)
[2021-01-02] MEDS: polyethylene glycoL 3350 17 GM POWD.PACK PO SCH (09:23)
[2021-01-02 11:39] VITALS: BP 98/54; PULSE 81; RESP 16; TEMP 98.6; O2SAT 92
[2021-01-03] MEDS ORDERED: levoFLOXacin 750 MG TABLET PO SCH (09:00)
== END 2021-01-02 15:45 | disposition short-term general hospital (02) | DRG 945 ==
LOC: INPGRE 21:45
PROVIDERS: ADMIT Family Medicine; ATTEND Family Medicine